=== PATIENT | female | born 1975 | race Caucasian/White ===

== ENCOUNTER 2017-08-13 11:25 | Day surgery (SDC) | payer BC ==
[2017-08-13] MEDS ORDERED: CLINDAMYCIN 600 MG/D5W (PMX) 50 ML IVPB (12:00)
[2017-08-13] MEDS ORDERED: SOD CHLORIDE 0.9% 1,000 ML IV (12:00)
[2017-08-13] MEDS ORDERED: ALBUTEROL 0.083% (NEB) 2.5 MG/3 ML AMP HHN (14:00)
[2017-08-13] MEDS ORDERED: HYDROmorphONE (0.2 MG/ML) 10ML SYG IV ×2 (14:00)
[2017-08-13] MEDS ORDERED: DIPHENHYDRAMINE 50 MG INJ IV (14:00)
[2017-08-13] MEDS ORDERED: FENTAnyl 50 MCG/ML VIAL IV ×3 (14:00)
[2017-08-13] MEDS ORDERED: FENTAnyl 50 MCG/ML VIAL (15:48)
[2017-08-13] MEDS ORDERED: MIDAZOLAM 1 MG/ML 2 ML INJ (16:00)
[2017-08-13] MEDS ORDERED: SUCCINYLCHOLINE CHLORIDE 100 MG/5 ML SYG IV (16:13)
[2017-08-13] MEDS ORDERED: ROPIVACAINE 0.5 % 30 ML VIAL (16:13)
[2017-08-13] MEDS ORDERED: ROCURONIUM 50 MG INJ (16:13)
[2017-08-13] MEDS ORDERED: PROPOFOL 20 ML (16:13)
[2017-08-13] MEDS ORDERED: SUGAMMADEX SODIUM 200 MG/2 ML VIAL IV (16:14)
[2017-08-13] MEDS: BUPIVACAINE 0.5%/EPI (SDV) 30 ML INJ INJ (16:25)
[2017-08-13] MEDS: MEPERIDINE 25 MG INJ IV (17:26)
[2017-08-13] MEDS: ONDANSETRON 4 MG INJ IV (17:27)
[2017-08-13] MEDS ORDERED: ONDANSETRON 4 MG INJ IV (17:30)
[2017-08-13] MEDS ORDERED: HYDROCODONE/APAP (5/325) TAB PO ×2 (17:30)
[2017-08-13] MEDS ORDERED: morphine 2 MG INJ IV (17:30)
[2017-08-13] MEDS: HYDROmorphONE (0.2 MG/ML) 10ML SYG IV ×2 (17:35→17:43)
[2017-08-13] MEDS: METOCLOPRAMIDE 10 MG INJ IV (18:21)
== END 2017-08-13 18:46 | disposition home or self-care (01) ==
LOC: SDS 11:25
DX: K80.10 Calculus of gallbladder with chronic cholecystitis without obstruction (principal); E66.9 Obesity, unspecified; Z68.30 Body mass index [BMI] 30.0-30.9, adult
CPT/HCPCS: 47562; 84703; 88304